=== PATIENT | male | born 1995 | race African-American/Black ===

== ENCOUNTER 2022-03-24 17:53 | Emergency (ER) | payer SELFPAY | END 2022-03-24 19:27 | disposition home or self-care (01) | LOC: ERS 17:53 | DX: M25.572 Pain in left ankle and joints of left foot (principal) ==

== ENCOUNTER 2022-10-13 16:13 | Emergency (ER) | payer SELFPAY ==
[2022-10-13] MEDS ORDERED: Ketorolac Tromethamine 30 MG/ML VIAL ONE (19:19)
== END 2022-10-13 19:43 | disposition home or self-care (01) ==
LOC: ERS 16:13
DX: K04.7 Periapical abscess without sinus (principal); K02.9 Dental caries, unspecified
CPT/HCPCS: 41800; 96372; J1885

== ENCOUNTER 2023-02-25 18:03 | Emergency (ER) | payer SELFPAY ==
[2023-02-25 21:22] LABS: SARS-CoV-2 NAA Rapid Test Not Detected (NotDetected)
== END 2023-02-25 20:01 | disposition home or self-care (01) ==
LOC: ERS 18:03
DX: J06.9 Acute upper respiratory infection, unspecified (principal); Z20.822 Contact with and (suspected) exposure to COVID-19
CPT/HCPCS: 99283

== ENCOUNTER 2024-01-02 12:20 | Emergency (ER) | payer SELFPAY ==
[2024-01-02 13:30] LABS: Bacteria/HPF None Seen HPF (None Seen); Bilirubin Negative (Negative); Blood, Urine 1+ (Negative); CAUTI Indications for Culture Pelvic or flank pain; Clarity Extra Turbid (Clear); Glucose, Urine (Dipstick) Normal (Negative); Ketone, Urine 60 mg/dL (Negative); Leukocyte 500 Leu/uL (Negative); Nitrite Negative (Negative); Protein, Urine (Dipstick) 50 mg/dL (Neg-Trace); RBC/HPF 21-50 HPF (0-3); Specific Gravity, Urine 1.032 (1.002-1.036); Squamous Epithelial None Seen HPF (0-3); pH, Urine 6.5 (5.0-9.0)
[2024-01-02 13:34] LABS: Urine Culture Reflex Yes Yes; WBC/HPF Greater than 50 HPF (0-3)
[2024-01-02 13:35] LABS: SARS-CoV-2 E Target Negative; SARS-CoV-2 N2 Target Negative; SARS-CoV-2 NAA Rapid Test Not Detected (NotDetected); SARS-CoV-2 RdRP gene Negative
[2024-01-02] MEDS ORDERED: cefTRIAXone (ROCEPHIN) 500 MG VIAL ONE (14:39)
[2024-01-02] MEDS ORDERED: Lidocaine 1% PF 5 ML VIAL ONE (14:39)
[2024-01-03 23:56] LABS: Chlam.trachomatis by PCR,Urine Not Detected (NotDetected); GC N.gonorrhoeae PCR,UrineVOID DETECTED (NotDetected)
== END 2024-01-02 15:02 | disposition home or self-care (01) ==
LOC: ERS 12:20
DX: N39.0 Urinary tract infection, site not specified (principal)
CPT/HCPCS: 81001; 87086; 87491; 87591; 96372; 99283; J0696; U0002